=== PATIENT | male | born 1940 | race Caucasian/White ===

== ENCOUNTER → 2022-02-02 | Outpatient (CLI) | payer MEDICARE, SELFPAY ==
[2022-02-02 21:41] LABS: Absolute Lymphocyte Count 2.21 X10^3/uL (0.83-4.51); Absolute Neutrophil Count 6.9 X10^3/uL (2.0-7.7); Basophil# 0.11 X10^3/uL; Eosinophil# 0.27 X10^3/uL; Eosinophils% 2.5 % (0-5); Hematocrit 48.5 % (40-54); Hemoglobin 15.5 g/dL (13.0-16.5); Lymphocyte # 2.21 X10^3/ul (0.83-4.51); Lymphocyte % 20.3 % (19-41); Mean Corpuscular Hgb 30.4 pg (27.0-32.0); Mean Corpuscular Volume 95.1 fL (80-94); Mean Platelet Vol. 11.5 fl (6.2-12.0); Monocyte# 1.36 X10^3/uL; Monocyte% 12.5 % (0-10); NRBC Flagged by Analyzer 0 % (0-5); Neutrophil % 63.3 % (47-70); Platelet Count 257 K/mm3 (150-450); RBC Distribution Width CV 13.3 % (11.6-14.6); RBC Distribution Width SD 46.7 fl (35.1-43.9); White Blood Count 10.9 K/mm3 (4.4-11.0)
[2022-02-02 22:02] LABS: AST(SGOT) 21 U/L (15-37); Alanine Aminotransfer ALT/SGPT 31 U/L (16-61); Albumin, Serum 3.8 g/dL (3.2-5.0); Alkaline Phosphatase 68 U/L (45-117); Anion Gap 5 (5-15); BUN 23 mg/dL (7-18); BUN/Creat Ratio 13.2 RATIO (10-20); Calcium,Total 9.5 mg/dL (8.5-10.1); Chloride 106 mmol/L (98-107); Cholesterol 204 mg/dL (200); Creatinine, Serum 1.74 mg/dL (0.70-1.30); EST Glomerular Filtration Rate 40 mL/min (>60); Est Glom Filt Rate - Afr Amer 49 mL/min (>60); Globulin 3.9 g/dL (2.2-4.2); Glucose 168 mg/dL (74-106); High Density Lipoprotein 43 mg/dL; PSA,Total - Annual Screen 1.02 ng/mL (0.00-4.00); Potassium 4.4 mmol/L (3.5-5.1); Protein, Total 7.7 g/dL (6.4-8.2); Sodium Level 140 mmol/L (136-145); Triglycerides 377 mg/dL; Very Low Density Lipoprotein 75 mg/dL (5-40)
== END | disposition home or self-care (01) ==
PROVIDERS: PCP Nurse Practitioner; Visit Provider Nurse Practitioner
DX: E78.5 Hyperlipidemia, unspecified (principal); L03.90 Cellulitis, unspecified; R35.0 Frequency of micturition
CPT/HCPCS: 80053; 80061; 84153; 85025; G0103

== ENCOUNTER → 2022-05-24 | Outpatient (CLI) | payer MEDICARE, SELFPAY ==
[2022-05-24 22:52] LABS: Cholesterol 212 mg/dL (200); High Density Lipoprotein 46 mg/dL; Triglycerides 102 mg/dL; Very Low Density Lipoprotein 20 mg/dL (5-40)
== END | disposition home or self-care (01) ==
PROVIDERS: PCP Nurse Practitioner; Visit Provider Nurse Practitioner
DX: E78.5 Hyperlipidemia, unspecified (principal)
CPT/HCPCS: 80061

== ENCOUNTER → 2022-07-28 | Outpatient (CLI) | payer MEDICARE, SELFPAY ==
--- NOTE | 2022-07-28 14:58 | NEURO ---
NCS and/or EMG Patient Report Ordering Doctor: Alvaro Rodríguez DATE OF SERVICE: 07/28/22 Acosta presents for electrodiagnostic testing of the left upper limb. He has complaints of left arm pain with numbness and tingling in the hand. Electrodiagnostic findings: Left median motor nerve demonstrates prolonged distal latency with normal amplitude and reduced conduction velocity. Normal left ulnar motor response. Normal left median and ulnar F?waves. Prolonged left median sensory latency at the wrist. Needle EMG testing showed no evidence of denervation in muscles tested in the left upper limb. Motor unit action potentials are of normal amplitude and duration. No denervation noted in the left cervical paraspinals. Electrodiagnostic impression: This is an abnormal study in the left upper limb 1. Electrodiagnostic findings demonstrate left-sided median mononeuropathy. This is consistent with a mild to moderate left carpal tunnel syndrome. 2. No electrodiagnostic evidence is noted for cervical radiculopathy. Multi Select Codes Neurology Neurology Interp Codes: 98141-96 Musc test done w/n test comp (interp) and 63467-49 Nrv cndj tst 5-6 studies (interp)
== END | disposition home or self-care (01) ==
LOC: PSN 13:31
PROVIDERS: PCP Nurse Practitioner; Referring Provider Orthopaedic Surgery Sports Medicine; Visit Provider Orthopaedic Surgery Sports Medicine
DX: G56.03 Carpal tunnel syndrome, bilateral upper limbs (principal)
CPT/HCPCS: 95886; 95909

== ENCOUNTER → 2022-08-20 | Outpatient (CLI) | payer MEDICARE, SELFPAY ==
[2022-08-20 20:11] LABS: Absolute Lymphocyte Count 2.66 X10^3/uL (0.83-4.51); Absolute Neutrophil Count 6.7 X10^3/uL (2.0-7.7); Basophil# 0.12 X10^3/uL; Basophil% 1.1 % (0-1); Eosinophil# 0.13 X10^3/uL; Eosinophils% 1.2 % (0-5); Hematocrit 47.4 % (40-54); Hemoglobin 15.8 g/dL (13.0-16.5); Lymphocyte # 2.66 X10^3/ul (0.83-4.51); Lymphocyte % 24.2 % (19-41); Mean Corp Hgb Conc 33.3 g/dL (32-36); Mean Corpuscular Hgb 31.7 pg (27.0-32.0); Mean Corpuscular Volume 95.2 fL (80-94); Monocyte# 1.33 X10^3/uL; Monocyte% 12.1 % (0-10); NRBC Flagged by Analyzer 0 % (0-5); Neutrophil # 6.73 X10^3/uL (2.7-7.7); Neutrophil % 61.1 % (47-70); Platelet Count 236 K/mm3 (150-450); RBC Distribution Width CV 13.2 % (11.6-14.6); RBC Distribution Width SD 45.8 fl (35.1-43.9); Red Blood Count 4.98 M/mm3 (4.6-6.2)
[2022-08-20 20:24] LABS: ALB/GLOB Ratio 1.1 RATIO (0.9-2.4); AST(SGOT) 17 U/L (15-37); Alanine Aminotransfer ALT/SGPT 20 U/L (16-61); Albumin, Serum 3.8 g/dL (3.2-5.0); Alkaline Phosphatase 68 U/L (45-117); Anion Gap 6 (5-15); BUN 25 mg/dL (7-18); BUN/Creat Ratio 14.5 RATIO (10-20); Calcium,Total 9.8 mg/dL (8.5-10.1); Chloride 106 mmol/L (98-107); Cholesterol 232 mg/dL (200); Creatinine, Serum 1.72 mg/dL (0.70-1.30); EST Glomerular Filtration Rate 41 mL/min (>60); Est Glom Filt Rate - Afr Amer 49 mL/min (>60); Globulin 3.6 g/dL (2.2-4.2); Glucose 95 mg/dL (74-106); High Density Lipoprotein 46 mg/dL; Potassium 4.4 mmol/L (3.5-5.1); Protein, Total 7.4 g/dL (6.4-8.2); Sodium Level 139 mmol/L (136-145); Triglycerides 113 mg/dL; Very Low Density Lipoprotein 23 mg/dL (5-40)
[2022-08-20 20:33] LABS: Hemoglobin A1c 5.9 % (3.8-5.6)
== END | disposition home or self-care (01) ==
PROVIDERS: PCP Nurse Practitioner; Visit Provider Nurse Practitioner
DX: N18.30 Chronic kidney disease, stage 3 unspecified (principal); E78.5 Hyperlipidemia, unspecified; L03.90 Cellulitis, unspecified; R73.9 Hyperglycemia, unspecified
CPT/HCPCS: 80053; 80061; 83036; 85025

== ENCOUNTER → 2022-11-29 | Outpatient (CLI) | payer MEDICARE, SELFPAY ==
[2022-11-29 20:24] LABS: Cholesterol 160 mg/dL (200); High Density Lipoprotein 43 mg/dL; Triglycerides 162 mg/dL; Very Low Density Lipoprotein 32 mg/dL (5-40)
== END | disposition home or self-care (01) ==
PROVIDERS: PCP Nurse Practitioner; Visit Provider Nurse Practitioner
DX: E78.2 Mixed hyperlipidemia (principal)
CPT/HCPCS: 80061

== ENCOUNTER 2023-01-05 07:17 | Day surgery (SDC) | payer MEDICARE, SELFPAY ==
[2023-01-05] VITALS (7 sets, daily range): BP systolic 91–128; BP diastolic 59–68; PULSE 59–70; RESP 16–18; TEMP 36.7–36.8; O2SAT 93–99; BMI 23.8
[2023-01-05] MEDS: Lactated Ringers 1,000 ML 15 ML IV (07:44)
--- NOTE | 2023-01-05 09:11 | PCM.HP.STD ---
HPI - General HPI Narrative MIRI WONG, is a 82 M who presents for left endoscopic carpal tunnel release. no changes to h and p. pt ok to proceed. left wrist marked. explained post op recovery and FU apt. he understands. [id number] Acct: [id number] Name: MIRI WONG Rep #: [id number] : 1940 Provider: Dr. Alvaro Rodríguez MD Age/Sex: 81/M Location: [facility] [place] Status: Signed with Addenda ADDENDUM by Elda Collado on 09/14/22 at 1340 Office Procedure Documentation entered by Elda Collado 09/14/22 13:40: Ortho Injections Injections Yes Subacromial Injection Left Details: Obtained consent for injection. Under sterile conditions, injected the patients left subacromial injection with a 6cc cocktail of 4cc bupivacaine and 2cc kenalog. The patient tolerated the injection well without any noted complication. Patient should call our office if redness develops, pain worsens or if they have any concerns. Office Meds Kenalog 40 mg/mL suspension for injection Performing Provider: Alvaro Rodríguez MD Performing Location: [facility] Administered by: Alvaro Rodríguez MD on 09/14/22 13:39 Dose Route Admin Location Dispensed Lot Number Expiration Date ND Program Admin 80 mg intra-articular left subacromial 2 mL [id number] 07/23/23 [address]-1 [employer] Date cc: ~* Signed Intake Vital Signs 08/20/2313:50 Height 5 ft 4 in Intake Visit Reasons: left shoulder Allergies rosuvastatin Allergy (Severe, Verified 09/14/22 13:02) ;pruritis and rashprednisone Adverse Reaction (Verified 09/14/22 13:02) Vomiting Medications cholecalciferol (vitamin D3) 50 mcg (2,000 unit) capsule 50 mcg PO DAILY 01/10/22 [History Confirmed 09/14/22] coQ10 (ubiquinol) 200 mg capsule (CoQmax Ubiquinol) 200 mg PO DAILY 01/10/22 [History Confirmed 09/14/22] glucosamine HCl 500 mg tablet 500 mg PO BID 01/10/22 [History Confirmed 09/14/22] tamsulosin 0.4 mg capsule 0.4 mg PO DAILY #90 caps 03/10/22 [Rx Confirmed 09/14/22] vitamin B complex (B Complex-Vitamin B12 tablet) 1 tab PO DAILY 03/10/22 [History Confirmed 09/14/22] apixaban 2.5 mg tablet (Eliquis) 2.5 mg PO BID 04/06/22 [History Confirmed 09/14/22] rosuvastatin 5 mg tablet 5 mg PO DAILY #90 tabs 05/25/22 [Rx Confirmed 09/14/22] trazodone 50 mg tablet 50 mg PO QHS PRN insomnia #30 tabs 07/05/22 [Rx Confirmed 09/14/22] lorazepam 2 mg tablet 2 mg PO QHS PRN sleep #90 tabs 08/20/22 [Rx Confirmed 09/14/22] PFSH Medical History Atrial fibrillation and flutter Diverticulosis Hypercholesteremia Hyperlipemia, mixed Insomnia disorder Left rotator cuff tear Left shoulder pain Normal colonoscopy Normal echocardiogram Osteoarthritis Stage 3 chronic kidney disease Torticollis Surgical History History of cataract surgery Hx of hernia repair 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 Alvaro Rodríguez MD 09/14/22 1133. MIRI WONG is a 81 year old M here today for follow-up nerve conduction studies for left-sided carpal tunnel syndrome. He also has left shoulder pain, injection wore off about a week ago, wants another injection. Wants to go ahead with left ECTR in november this year. Ortho Exam General General: Yes no acute distress Neurologic: Yes alert and Yes oriented x3 Psychologic: Yes reasonable and appropriate Left Shoulder Skin/Wound: Yes CDI, No ecchymosis, No erythema and No swelling Testing: Yes Hawkin's, Yes Neer's, No Speed's, No TTP Biceps, No TTP AC Joint, No Drop Arm, Yes empty can and No cross arm SHOULDER: A P FE 160 ER 40. strength FE 4-/5. ER 4/5. wasting SS and IS fossa. moderate creps. normal motor and sens ax, wasting in the thenar and complaining about tingling in digits 1-4. Supplemental Info [facility]/Neurology [address] [place] [address] MR#: [id number] Acct: [id number] Name: MIRI WONG Rep #: [id number] : 1940 81 From: Sigrid Haynes MD Referring Dr: Alvaro Rodríguez MD Status: REG CLI Location: PSN Date: 07/28/22 Sex: M C NCS and/or EMG Patient Report Ordering Doctor: Alvaro Rodríguez DATE OF SERVICE: 07/28/22 Miri presents for electrodiagnostic testing of the left upper limb. He has complaints of left arm pain with numbness and tingling in the hand. Electrodiagnostic findings: Left median motor nerve demonstrates prolonged distal latency with normal amplitude and reduced conduction velocity. Normal left ulnar motor response. Normal left median and ulnar F?waves. Prolonged left median sensory latency at the wrist. Needle EMG testing showed no evidence of denervation in muscles tested in the left upper limb. Motor unit action potentials are of normal amplitude and duration. No denervation noted in the left cervical paraspinals. Electrodiagnostic impression: This is an abnormal study in the left upper limb 1. Electrodiagnostic findings demonstrate left-sided median mononeuropathy. This is consistent with a mild to moderate left carpal tunnel syndrome. 2. No electrodiagnostic evidence is noted for cervical radiculopathy. Multi Select Codes Neurology Neurology Interp Codes: 17704-64 Musc test done w/n test comp (interp) and 70087-47 Nrv cndj tst 5-6 studies (interp) Coding Level of Care Code Off vis,est,level 3 Diagnoses Carpal tunnel syndrome on both sides G56.03 Left shoulder pain M25.512 Assessment and Plan Assessment and Plan (1) Carpal tunnel syndrome on both sides: Status: Acute Plan: 81-year-old man with nerve conduction study evidence of mild to moderate left-sided carpal tunnel syndrome median mononeuropathy. We discussed pros cons risk benefits of nonoperative versus going ahead with definitive surgical management open versus endoscopic carpal tunnel release. The patient would like to proceed with a definitive surgical solution for this and we have booked and consented him for left endoscopic carpal tunnel release. Pros and cons risks and benefits were discussed with the patient including but not limited to infection, pain, stiffness, bleeding, damage to surrounding structures, neurovascular injury, recurrence or retear, failure or wear of hardware or fixation, instability, fracture, deep vein thrombosis and pulmonary embolism, anesthetic risks, , patient dissatisfaction, need for further surgery and other risks. Patient understood and wished to proceed with surgery, and signed the informed consent documentation. (2) Left shoulder pain: Status: Acute Plan: 81-year-old man with continued left shoulder pain. He had good results with an injection in the past about 3 months ago wishes to proceed with another 1 and continue on with nonoperative management there. Pros and cons risks and benefits of left shoulder subacromial steroid injection were discussed. Patient wished to proceed. Risks include but not limited to infection, pain, stiffness, damage to other structures, neurovascular injury, wear further tear of the tendon and other structures such as the skin, bleeding, allergic reaction, acute flare reaction and other risks. Obtained informed consent for injection. Posterior lateral aspect of the shoulder was prepped with chlorhexidine solution allowed to thoroughly dry over 3 minutes. Used Gebauer spray per bottle instructions. Using sterile technique, injected the left subacromial joint with a 4cc 0.25% bupivacaine and 2cc 40 mg/mL kenalog. Bandage placed. The patient tolerated the injection well without any noted complication. Red flag symptoms were discussed such as redness, swelling, discharge, drainage, pain worsens or if they have any concerns to present to the ED or to call the clinic immediately. [facility] Medical History (Updated 12/29/22 @ 13:26 by Lizette Lucio) Atrial fibrillation and flutter Cardiology follow-up encounter High cholesterol History of atrial fibrillation History of renal disease Hypercholesteremia Insomnia disorder Left rotator cuff tear Left shoulder pain Non-smoker Normal colonoscopy Normal echocardiogram Osteoarthritis Prostate disease Stage 3 chronic kidney disease Torticollis Wears glasses Wears hearing aid Home Medications cholecalciferol (vitamin D3) 50 mcg (2,000 unit) capsule 50 mcg PO DAILY 01/10/22 [History Last Taken Unknown] coQ10 (ubiquinol) 200 mg capsule (CoQmax Ubiquinol) 200 mg PO DAILY 01/10/22 [History Last Taken Unknown] glucosamine HCl 500 mg tablet 500 mg PO BID 01/10/22 [History Last Taken Unknown] apixaban 2.5 mg tablet (Eliquis) 2.5 mg PO BID 04/06/22 [History Last Taken 01/01/23] rosuvastatin 5 mg tablet 5 mg PO DAILY #90 tabs 11/30/22 [Rx Last Taken Unknown] cyanocobalamin-liver extract tablet 1 tab PO DAILY 12/29/22 [History Last Taken Unknown] lorazepam 2 mg tablet 2 mg PO QHS sleep 12/29/22 [History Last Taken Unknown] tamsulosin 0.4 mg capsule 0.4 mg PO QHS 12/29/22 [History Last Taken Unknown] Allergy/AdvReac Type Severity Reaction Status Date / Time prednisone AdvReac Vomiting Verified 01/05/23 07:36 Family History Other Breast cancer COPD (chronic obstructive pulmonary disease) Heart disease Rheumatoid arthritis Surgical History (Updated 12/29/22 @ 13:26 by Lizette Lucio) History of cataract surgery Hx of hernia repair 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
[2023-01-05] MEDS: Cefazolin 2 GM in 0.9% Normal Saline (100mL Bag) 100 ML IV (09:15)
[2023-01-05] MEDS: Bupivacaine 0.25% 30 ML Vial (09:38)
--- NOTE | 2023-01-05 09:47 | PCM.OPRPT ---
Problems Associated Problem List Diagnoses (1) Carpal tunnel syndrome on both sides: Report of Operation Date of Procedure: 01/05/23 Pre-Operative Diagnosis: left carpal tunnel syndrome Post-Operative Diagnosis: same Surgery/Procedure Performed:: left endoscopic carpal tunnel release Description of Surgical Findings:: Surgeon: Alvaro Rodríguez Type of Anesthesia: IV Sedation and Local Anesthesiologist: Jose Grover Estimated Blood Loss (mL): 10 Description of Procedure: Patient was brought to the operating room theater.? The patient was administered 2g iv ancef prior to the start of the procedure.? Placed supine on the operating room table.? Anesthesia induced.? SCDs on the legs.? Tourniquet applied to the left upper operative extremity, appropriately padded. Arm table used. Operative extremity prepped and draped in the usual sterile fashion with chlorhexidine-based prep solution allowing over 3 minutes drying time prior to draping.? Preoperative timeout performed to confirm the site patient and the surgery. I used the [facility] endoscopic carpal tunnel kit / technique. 4cc 0.25% bupivicaine at incision site. ? Tourniquet up at 250mmg. I made a transverse 2 cm incision in line with the? transverse wrist crease.? This was in line with the fourth digit.? I carried the dissection down through skin and subcutaneous tissue achieved meticulous hemostasis. Just ulnar to palmaris tendon.? I incised the antebrachial fascia.? I passed sequential dilators into the carpal tunnel along the radial border of the Guyon's canal aiming for the fourth digit with the hand in extension. I used a synovial elevator to identify the transverse fibers of the transverse carpal tunnel ligament.? Passed the scope into the carpal tunnel. Once I had identified the full proximal and distal extent of the ligament I fully released the ligament under direct visualization by deploying the blade and slowly withdrawing the scope made sequential passes until I no longer felt tension as well as the entire extent of the ligament was released under direct visualization.? Sounded the tunnel with fernandez tenotomy scissors, complete release, no bands. Pictures taken and saved before and after release. Tourniquet let down. Wound thoroughly irrigated.?Meticulous hemostasis achieved.? Incisions closed with 3-0 nylon for the skin.?Skin was cleaned and dried. adaptic 4x4 gauze and alana. Patient woken up,? transferred off the operating room table and taken to postanesthetic care unit in stable condition. All sponge needle instrument counts were correct no complications.? Plan for the patient to be discharged home according to day surgery criteria when they are comfortable. Follow-up in the office in 2 days time. Gentle ROM hand and elbow no heavy lifting. Complications none Admit VTE Documentation VTE Present on Admission: No VTE Mechan Device Prophylaxis: SCD's VTE Pharm Prophylaxis ordered?: No Reason prophylaxis not ordered:: Treatment Not Indicated Procedures Musculoskeletal 20xxx-29xxx: 540[address] [facility]
--- NOTE | 2023-01-05 09:51 | DCINST_ITS ---
Discharge Instructions Diet Discharge Diet: No restrictions Activity Lifting Restrictions: no heavy lifting or gripping Keep extremity elevated above heart level: Operative Extremity Dressing / Incision Call your doctor if your incision/area has: Continuous Slow Oozing, Sudden Increased Bleeding, Increased Pain/ Swelling, Increased Redness, Foul Smelling Discharge and Swelling at the incision site Remove Dressing in: leave in place till F/U Follow Up Care Please Follow Up With: Alvaro Rodríguez MD When: 2 days Test Results: Test results from this visit will be discussed in further detail at your follow- up appointment, if applicable. Discharge Plan Admission Attending Provider: Alvaro Rodríguez Primary Care Provider: Vanesa Fontanez NP Discharge Orders/Prescriptions Prescriptions: No Action cholecalciferol (vitamin D3) 50 mcg (2,000 unit) capsule 50 mcg PO DAILY CoQmax Ubiquinol 200 mg capsule 200 mg PO DAILY glucosamine HCl 500 mg tablet 500 mg PO BID Rx Instructions: administer with meals rosuvastatin 5 mg tablet 5 mg PO DAILY Qty: 90 2RF cyanocobalamin-liver extract Tablet 1 tab PO DAILY tamsulosin 0.4 mg capsule 0.4 mg PO QHS lorazepam 2 mg tablet 2 mg PO QHS Eliquis 2.5 mg tablet 2.5 mg PO BID Referrals / Follow Up: Alvaro Rodríguez MD [Med Staff - Active Staff] - Vanesa Fontanez NP, [employer] [Primary Care Provider] - Disposition Disposition (needs filled in before D/C Order can be placed): Home, Self Care
== END 2023-01-05 10:32 | disposition home or self-care (01) ==
LOC: SDC 07:20 → AC 07:20
PROVIDERS: PCP Nurse Practitioner; Referring Provider Orthopaedic Surgery Sports Medicine; Visit Provider Orthopaedic Surgery Sports Medicine
PROC: (CPT 29848; principal; 2023-01-05 08:50)
DX: G56.03 Carpal tunnel syndrome, bilateral upper limbs (principal); I48.92 Unspecified atrial flutter; N18.30 Chronic kidney disease, stage 3 unspecified; E78.2 Mixed hyperlipidemia; Z79.01 Long term (current) use of anticoagulants; Z79.899 Other long term (current) drug therapy
CPT/HCPCS: 29848; 01810; J7120; J2405

== ENCOUNTER → 2023-08-01 | Outpatient (CLI) | payer MEDICARE, SELFPAY ==
[2023-08-01 21:50] LABS: Absolute Lymphocyte Count 1.79 X10^3/uL (0.83-4.51); Absolute Neutrophil Count 8.2 X10^3/uL (2.0-7.7); Basophil# 0.12 X10^3/uL; Eosinophil# 0.28 X10^3/uL; Eosinophils% 2.4 % (0-5); Hematocrit 48.7 % (40-54); Hemoglobin 15.6 g/dL (13.0-16.5); Lymphocyte # 1.79 X10^3/ul (0.83-4.51); Lymphocyte % 15.1 % (19-41); Mean Corpuscular Hgb 30.5 pg (27.0-32.0); Mean Corpuscular Volume 95.1 fL (80-94); Mean Platelet Vol. 10.9 fl (6.2-12.0); Monocyte# 1.45 X10^3/uL; Monocyte% 12.2 % (0-10); NRBC Flagged by Analyzer 0 % (0-5); Platelet Count 233 K/mm3 (150-450); RBC Distribution Width CV 12.9 % (11.6-14.6); RBC Distribution Width SD 45.3 fl (35.1-43.9); Red Blood Count 5.12 M/mm3 (4.6-6.2); White Blood Count 11.9 K/mm3 (4.4-11.0)
[2023-08-01 22:16] LABS: AST(SGOT) 23 U/L (15-37); Alanine Aminotransfer ALT/SGPT 31 U/L (16-61); Albumin, Serum 3.9 g/dL (3.2-5.0); Alkaline Phosphatase 78 U/L (45-117); Anion Gap 6 (5-15); BUN 25 mg/dL (7-18); BUN/Creat Ratio 14.9 RATIO (10-20); Calcium,Total 9.6 mg/dL (8.5-10.1); Chloride 106 mmol/L (98-107); Cholesterol 163 mg/dL (200); Creatinine, Serum 1.68 mg/dL (0.70-1.30); EST Glomerular Filtration Rate 42 mL/min (>60); Est Glom Filt Rate - Afr Amer 51 mL/min (>60); Globulin 3.8 g/dL (2.2-4.2); Glucose 107 mg/dL (74-106); High Density Lipoprotein 46 mg/dL; PSA,Total - Annual Screen 1.49 ng/mL (0.00-4.00); Potassium 4.8 mmol/L (3.5-5.1); Protein, Total 7.7 g/dL (6.4-8.2); Sodium Level 138 mmol/L (136-145); Triglycerides 116 mg/dL; Very Low Density Lipoprotein 23 mg/dL (5-40)
== END | disposition home or self-care (01) ==
PROVIDERS: PCP Nurse Practitioner; Referring Provider Nurse Practitioner; Visit Provider Nurse Practitioner
DX: E78.2 Mixed hyperlipidemia (principal); I48.91 Unspecified atrial fibrillation; I48.92 Unspecified atrial flutter; N40.0 Benign prostatic hyperplasia without lower urinary tract symptoms; M15.9 Polyosteoarthritis, unspecified; Z12.5 Encounter for screening for malignant neoplasm of prostate
CPT/HCPCS: 80053; 80061; 84153; 85025; G0103